=== PATIENT | female | born 1960 ===

== ENCOUNTER → 2016-11-26 | Outpatient (CLI) | payer OTHER ==
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
== END ==
LOC: MRI SRH 08:44
DX: M50.222 Other cervical disc displacement at C5-C6 level (principal); M50.223 Other cervical disc displacement at C6-C7 level